=== PATIENT | male | born 1955 | race African-American/Black ===

== ENCOUNTER 2022-05-22 14:40 | Observation (INO) | payer MEDICARE, MEDICAID ==
[2022-05-22 16:19] VITALS: BMI 19.3
[2022-05-22] MEDS ORDERED: Ondansetron PF 4 MG/2 ML Vial IVP PRN (17:18)
[2022-05-22] MEDS ORDERED: Ondansetron ODT 4 MG TAB PO PRN (17:18)
[2022-05-22] MEDS ORDERED: Acetaminophen 325 MG TAB PO PRN (17:18)
[2022-05-22] MEDS ORDERED: Senokot S 8.6-50 MG TAB PO PRN (17:18)
[2022-05-22] MEDS ORDERED: guaiFENesin 200 MG TAB PO PRN (17:23)
[2022-05-22] MEDS ORDERED: Nicotine 14 MG PATCH TD SCH (18:00)
[2022-05-22 18:34] LABS: Anion Gap 14 mmol/L (10-20); BUN (Urea Nitrogen) 20 mg/dL (8.4-25.7); Calc. Creatinine Clearance 52 mL/min (70-130); Carbon Dioxide 22 mmol/L (23-31); Chloride 105 mmol/L (98-107); Estimated GFR 71; Glucose 114 mg/dL (80-115); Potassium 3.7 mmol/L (3.5-5.1); Sodium 137 mmol/L (136-145)
[2022-05-22] MEDS ORDERED: Enoxaparin Sodium 40 MG/0.4 ML SYRINGE SC SCH (21:00)
[2022-05-22] MEDS: Famotidine 20 MG TAB PO SCH (21:17)
[2022-05-22] MEDS: Oseltamivir 75 MG CAP PO SCH (21:18)
[2022-05-23 06:13] LABS: Mean Corpuscular HGB CONC 30.6 g/dL (32.0-36.0); Mean Corpuscular Hemoglobin 25.2 pg (27.0-31.0); Mean Corpuscular Volume 82.4 fl (78.0-98.0); Mean Platelet Volume 9.2 fL (7.4-10.4); Platelet Count 169 10x3/uL (130-400); RBC Distribution Width 13.6 % (11.5-14.5); Red Blood Cell (RBC) Count 3.95 mill/uL (4.70-6.10); White Blood Cell (WBC) Count 7.6 10x3/uL (4.8-10.8)
[2022-05-23 06:36] LABS: Anion Gap 11 mmol/L (10-20); BUN (Urea Nitrogen) 18 mg/dL (8.4-25.7); Calc. Creatinine Clearance 61 mL/min (70-130); Calcium 8.3 mg/dL (7.8-10.44); Carbon Dioxide 24 mmol/L (23-31); Chloride 105 mmol/L (98-107); Estimated GFR 87; Glucose 98 mg/dL (80-115); Potassium 3.6 mmol/L (3.5-5.1); Sodium 136 mmol/L (136-145)
[2022-05-23] MEDS ORDERED: Carvedilol 6.25 MG TAB PO SCH (08:00)
[2022-05-23] MEDS ORDERED: Spironolactone 25 MG TAB PO SCH (08:00)
[2022-05-23 08:16] LABS: Band 17 % (5-11); Eosinophils 1 % (0-10); Lymphocytes 34 % (21-51); MDiff Complete? YES; Monocytes 10 % (0-10); Neutrophil 38 % (42-75); Platelet Morphology Comment Appears Adequate; Polychromasia SLIGHT = 2-3 cells (100X) (0-2/hpf)
[2022-05-23] MEDS: Famotidine 20 MG TAB PO SCH (08:43)
[2022-05-23] MEDS: Oseltamivir 75 MG CAP PO SCH (08:43)
[2022-05-23] MEDS ORDERED: FLU VACC QS2022-23(65YR UP)/PF 240 MCG/0.7 ML SYRINGE IM ONE (09:00)
[2022-05-23 12:19] VITALS: BP 119/62; TEMP 97.9
== END 2022-05-23 12:35 | disposition home or self-care (01) ==
LOC: T4-A 16:02
PROVIDERS: ADMIT Internal Medicine; ATTEND Internal Medicine
DX: J10.1 Influenza due to other identified influenza virus with other respiratory manifestations (principal); G93.40 Encephalopathy, unspecified; I11.0 Hypertensive heart disease with heart failure; I50.22 Chronic systolic (congestive) heart failure; E87.20 Acidosis, unspecified; N17.9 Acute kidney failure, unspecified; R73.9 Hyperglycemia, unspecified; D64.9 Anemia, unspecified; I42.9 Cardiomyopathy, unspecified; F17.200 Nicotine dependence, unspecified, uncomplicated; Z79.899 Other long term (current) drug therapy
CPT/HCPCS: 36415; 70551; 80048; 85025; 94640; J1650; J7620